=== PATIENT | male | born 1980 | race American Indian/Alaskan Native ===

== ENCOUNTER 2017-07-31 00:21 | Emergency (ER) | payer OTHER ==
[2017-07-31 00:33] VITALS: O2SAT 99; BMI 24.4
[2017-07-31] MEDS ORDERED: Morphine 4 mg/ml ISec IM STA (00:39)
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
[2017-07-31 03:15] VITALS: BP 130/78; PULSE 86; RESP 18; TEMP 98.4
--- NOTE | 2017-07-31 08:34 | RAD ---
PROCEDURE: Left Foot Radiographs. HISTORY: left foot injury COMPARISON: None. FINDINGS: BONES: No fracture, suspicious lytic or blastic change. JOINTS: Normal. SOFT TISSUES: Normal. OTHER FINDINGS: None. IMPRESSION: Normal left foot radiographs.
== END 2017-07-31 03:15 | disposition home or self-care (01) ==
LOC: ED 00:21 → MERGE 00:21 → ED 03:15
DX: S92.912A Unspecified fracture of left toe(s), initial encounter for closed fracture (principal); W31.89XA Contact with other specified machinery, initial encounter
CPT/HCPCS: 73630; 96372; 99285; J2270

== ENCOUNTER 2018-04-21 12:19 | Emergency (ER) | payer BC ==
[2018-04-21 12:37] VITALS: BMI 20.7
[2018-04-21] MEDS ORDERED: Sodium Chloride 0.9% 2,000 ML IV STA (12:40)
--- NOTE | 2018-04-21 12:43 | ED PDOC ---
Arrival/HPI - General Chief Complaint: Pain, Chronic Time Seen by Provider: 04/21/18 12:34 Historian: Patient - History of Present Illness Narrative History of Present Illness (Text): 04/21/18 12:39 37 year old male, with no significant past medical history, presents to the Emergency department complaining of right sided abdominal discomfort since past month. Patient informs worsening pain prompting him to the Emergency department today. Patient informs good bowel movement every other day and denies any changes in diet. Patient denies any fever, chills, nausea, vomiting, diarrhea, chest pain, shortness of breath, sick contact, recent travel or any other complaints. Patient admits smoking and drinking occasionally but denies substance use. 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 Patient presents to the Emergency department for medical evaluation. PMD: Bryon Time/Duration: 24 hours Symptom Onset: Gradual Symptom Course: Worsening Quality: Aching Activities at Onset: Light Context: Home Past Medical History - Provider Review Nursing Documentation Reviewed: Yes - Infectious Disease Hx of Infectious Diseases: None - Cardiac Hx Cardiac Disorders: No - Pulmonary Hx Respiratory Disorders: No - Neurological Hx Neurological Disorder: No - HEENT Hx HEENT Disorder: No - Renal Hx Renal Disorder: No - Endocrine/Metabolic Hx Endocrine Disorders: No - Hematological/Oncological Hx Blood Disorders: No - Integumentary Hx Dermatological Disorder: No - Musculoskeletal/Rheumatological Hx Back Pain: Yes - Gastrointestinal Hx Gastrointestinal Disorders: No - Genitourinary/Gynecological Hx Genitourinary Disorders: No - Psychiatric Hx Psychophysiologic Disorder: No Hx Substance Use: No - Anesthesia Hx Anesthesia: No Family/Social History - Physician Review Nursing Documentation Reviewed: Yes Family/Social History: No Known Family HX Smoking Status: Current Some Days Smoker Hx Alcohol Use: Yes Hx Substance Use: No Allergies/Home Meds Allergies/Adverse Reactions: Allergies shellfish derived Allergy (Verified 07/31/17 00:33) RASH Home Medications: Home Meds Medication Instructions Recorded Confirmed No Known Home Med 04/21/18 04/21/18 Review of Systems - Physician Review All systems were reviewed & negative as marked: Yes - Review of Systems Constitutional: Normal. absent: Fevers Eyes: Normal ENT: Normal Respiratory: Normal. absent: SOB Cardiovascular: Normal. absent: Chest Pain Gastrointestinal: Abdominal Pain (right sided). absent: Stool Changes, Diarrhea , Nausea, Vomiting Genitourinary Male: Normal Musculoskeletal: Normal Skin: Normal Neurological: Normal Endocrine: Normal Hemo/Lymphatic: Normal Psychiatric: Normal Physical Exam Vital Signs Reviewed: Yes Vital Signs Temp Pulse Resp BP Pulse Ox 04/21/18 12:52 98.2 F 79 18 136/88 97 Temperature: Afebrile Blood Pressure: Normal Pulse: Regular Respiratory Rate: Normal Appearance: Positive for: Well-Appearing, Non-Toxic, Comfortable Pain Distress: None Mental Status: Positive for: Alert and Oriented X 3 - Systems Exam Head: Present: Atraumatic, Normocephalic Pupils: Present: PERRL Extroacular Muscles: Present: EOMI Conjunctiva: Present: Normal Respiratory/Chest: Present: Clear to Auscultation, Good Air Exchange. No: Respiratory Distress, Accessory Muscle Use Cardiovascular: Present: Regular Rate and Rhythm, Normal S1, S2. No: Murmurs Abdomen: Present: Tenderness (right sided abdominal tenderness). No: Distention , Peritoneal Signs, McBurney's Point Tender Upper Extremity: Present: Normal Inspection. No: Cyanosis, Edema Lower Extremity: Present: Normal Inspection. No: Edema Neurological: Present: GCS=15, CN II-XII Intact, Speech Normal Skin: Present: Warm, Dry, Normal Color. No: Rashes Psychiatric: Present: Alert, Oriented x 3, Normal Insight, Normal Concentration Medical Decision Making ED Course and Treatment: 04/21/18 12:46 Impression: 37 year old male presents to the Emergency department for right side abdominal discomfort. Plan: -- CT of Head -- CT of Cervical Spine -- Labs -- EKG -- Chest X-ray -- IV Fluids -- Urinalysis -- US of Abdomen -- Reassess and disposition Progress Notes: 04/21/18 15:01 CT of head reviewed by radiologist, shows: FINDINGS: HEMORRHAGE: No intracranial hemorrhage. BRAIN: No mass effect or edema. No atrophy or chronic microvascular ischemic changes. VENTRICLES: Unremarkable. No hydrocephalus. CALVARIUM: Unremarkable. PARANASAL SINUSES: Unremarkable as visualized. No significant inflammatory changes. MASTOID AIR CELLS: Unremarkable as visualized. No inflammatory changes. OTHER FINDINGS: None. IMPRESSION: No acute findings Chest X-ray reviewed by radiologist, shows: FINDINGS: LUNGS: No active pulmonary disease. PLEURA: No significant pleural effusion identified, no pneumothorax apparent. CARDIOVASCULAR: Normal. OSSEOUS STRUCTURES: No significant abnormalities. VISUALIZED UPPER ABDOMEN: Normal. OTHER FINDINGS: None. IMPRESSION: No active disease. CT of Cervical Spine reviewed by radiologist, shows: FINDINGS: VERTEBRAE: No fracture. Normal alignment. No destructive bony lesion. DISCS/SPINAL CANAL/NEURAL FORAMINA: No significant central canal or neural foraminal stenosis. There is a moderate to large left paracentral disc herniation at C4-5. This is best seen on sagittal image 45 and axial image 49 series 2 PARASPINAL SOFT TISSUES: Unremarkable. OTHER FINDINGS: None. IMPRESSION: Moderate to large left paracentral disc herniation at C4-5 Ultrasound of Abdomen reviewed by radiologist, shows: FINDINGS: LIVER: Measures 10.4 cm. Patent portal vein. Portal venous flow: Hepatopetal. Unremarkable echogenicity of the liver parenchyma. No mass. No intrahepatic bile duct dilatation. GALLBLADDER: Unremarkable. No gallstones. COMMON BILE DUCT: Measures 3.9 mm. No stones. No dilatation. PANCREAS: Unremarkable as visualized. No mass. No ductal dilatation. RIGHT KIDNEY: Measures 4.4 x 12.4cm. Normal echogenicity. No calculus, mass, or hydronephrosis. LEFT KIDNEY: Measures 5.8 x 11.2cm. Normal echogenicity. No calculus, mass, or hydronephrosis. SPLEEN: Normal in size and contour. No mass. AORTA: No aneurysmal dilatation. IVC: Unremarkable. OTHER FINDINGS: None. IMPRESSION: Unremarkable abdominal sonogram. - Lab Interpretations Lab Results: 04/21/18 13:30 04/21/18 13:30 Lab Results 04/21/18 13:40: Urine Color Yellow, Urine Appearance Clear, Urine pH 7.5, Ur Specific [place] 1.015, Urine Protein 30 H, Urine Glucose (UA) Negative, Urine Ketones Negative, Urine Blood Negative, Urine Nitrate Negative, Urine Bilirubin Negative, Urine Urobilinogen 1.0 H, Ur Leukocyte Esterase Negative, Urine RBC Negative, Urine WBC 0 - 2, Ur Epithelial Cells 1 - 3, Urine Bacteria Few 04/21/18 13:30: Alcohol, Quantitative 147 H 04/21/18 13:30: Sodium 145, Potassium 3.8, Chloride 104, Carbon Dioxide 28, Anion Gap 17, BUN 9, Creatinine 0.8, Est GFR ( Amer) > 60, Est GFR (Non- Af Amer) > 60, Random Glucose 87, Calcium 9.2, Total Bilirubin 0.3, AST 31, ALT 25, Alkaline Phosphatase 64, Lactate Dehydrogenase 331 L, Total Creatine Kinase 141, Troponin I < 0.01, Total Protein 7.7, Albumin 4.4, Globulin 3.3, Albumin/ Globulin Ratio 1.3, Lipase 74 04/21/18 13:30: WBC 4.6, RBC 5.28, Hgb 12.6 L, Hct 38.1 L, MCV 72.2 L, MCH 23.9 L, MCHC 33.1, RDW 14.3, Plt Count 320, MPV 9.6, Gran % 60.1, Lymph % (Auto) 29.1 , [place] % (Auto) 8.0 H, Eos % (Auto) 1.9, Baso % (Auto) 0.9, Gran # 2.79, Lymph # (Auto) 1.4, [place] # (Auto) 0.4, Eos # (Auto) 0.1, Baso # (Auto) 0.04 - RAD Interpretation Radiology Orders: 04/21/18 12:40 CERVICAL SPINE W/O CONTRAST [CT] Stat HEAD W/O CONTRAST [CT] Stat CHEST PORTABLE [RAD] Stat ABDOMEN COMPLETE [US] Stat 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 - Medication Orders Current Medication Orders: Discontinued Medications Sodium Chloride (Sodium Chloride 0.9%) 2,000 mls @ 999 mls/hr IV .Q2H1M STA Stop: 04/21/18 14:40 Last Admin: 04/21/18 13:49 Dose: 999 mls/hr eMAR Start Stop Document 04/21/18 13:49 [email or web address] (Rec: 04/21/18 13:49 [email or web address] [id number]) Intravenous Solution Start Date 04/21/18 Start Time 13:49 End Date 04/21/18 Morphine Sulfate (Morphine) 4 mg IVP STAT STA Stop: 04/21/18 13:15 Last Admin: 04/21/18 13:49 Dose: 4 mg MAR Pain Assessment Document 04/21/18 13:49 [email or web address] (Rec: 04/21/18 13:50 [email or web address] [id number]) Pain Reassessment Is this a pain reassessment? No Sleep Is patient sleeping during reassessment? No Presence of Pain Presence of Pain Yes Pain Scale Used Pain Scale Used Numeric Location Pain Location Body Site Abdomen Description Description Constant Intensity of Pain at present 7 Pain Behavior Facial Grimacing Aggravating Factors Changing Position Alleviating Factors/Management Medication Techniques Alleviating Factors Medication IVP Administration Document 04/21/18 13:49 [email or web address] (Rec: 04/21/18 13:50 [email or web address] [id number]) Charges for Administration # of IVP Administrations 1 Ondansetron HCl (Zofran Inj) 4 mg IVP STAT STA Stop: 04/21/18 13:15 Last Admin: 04/21/18 13:49 Dose: 4 mg IVP Administration Document 04/21/18 13:49 [email or web address] (Rec: 04/21/18 13:49 [email or web address] [id number]) Charges for Administration # of IVP Administrations 1 - Scribe Statement The provider has reviewed the documentation as recorded by the Scribe Yuli Belle. All medical record entries made by the Scribe were at my direction and personally dictated by me. I have reviewed the chart and agree that the record accurately reflects my personal performance of the history, physical exam, medical decision making, and the department course for this patient. I have also personally directed, reviewed, and agree with the discharge instructions and disposition. Disposition/Present on Arrival - Present on Arrival Any Indicators Present on Arrival: No History of DVT/PE: No History of Uncontrolled Diabetes: No Urinary Catheter: No History of Decub. Ulcer: No History Surgical Site Infection Following: None - Disposition Have Diagnosis and Disposition been Completed?: Yes Diagnosis: Alcohol intoxication, Alcoholic gastritis, Cervical radiculopathy, Bulging of intervertebral disc Disposition: HOME/ ROUTINE Disposition Time: 15:58 Patient Plan: Discharge Condition: FAIR Discharge Instructions (ExitCare): Alcohol Abuse and Alcoholism (DC), Gastritis (DC), Radiculopathy (DC) Additional Instructions: Mr Deutsch - Your numbness on the right side is coming from a buldging disc in your neck, you need to follow up with a neurosurgeon. Dr Izaguirre is clinical operations specialist. Your abodominal pain is coming from the alcohol you are drinking. Your blood alcohol level here today was 174. You have to stop drinking. I am prescribing protonix for you to take at home for this pain. Follow up with your regular doctor. Return to us if problems. Best- Dr. Ab Hightower Forms: [employer] (Serbian)
[2018-04-21 12:53] VITALS: BP 136/88; TEMP 98.2
--- NOTE | 2018-04-21 13:12 | CT ---
PROCEDURE: CT HEAD WITHOUT CONTRAST. HISTORY: Right Sided Body Numbness COMPARISON: None available. TECHNIQUE: Axial computed tomography images were obtained through the head/brain without intravenous contrast. Radiation dose: Total exam DLP = 910 mGy-cm. This CT exam was performed using one or more of the following dose reduction techniques: Automated exposure control, adjustment of the mA and/or kV according to patient size, and/or use of iterative reconstruction technique. FINDINGS: HEMORRHAGE: No intracranial hemorrhage. BRAIN: No mass effect or edema. No atrophy or chronic microvascular ischemic changes. VENTRICLES: Unremarkable. No hydrocephalus. CALVARIUM: Unremarkable. PARANASAL SINUSES: Unremarkable as visualized. No significant inflammatory changes. MASTOID AIR CELLS: Unremarkable as visualized. No inflammatory changes. OTHER FINDINGS: None. IMPRESSION: No acute findings
[2018-04-21] MEDS ORDERED: Morphine 4 mg/ml ISec IVP STA (13:14)
--- NOTE | 2018-04-21 13:36 | CT ---
PROCEDURE: CT Cervical Spine without contrast HISTORY: right sided cervical radiculopathy COMPARISON: None available. TECHNIQUE: Axial computed tomography images were obtained of the cervical spine without the use of intravenous contrast. Coronal and sagittal reformatted images were created and reviewed. Radiation dose: Total exam DLP = 600 mGy-cm. This CT exam was performed using one or more of the following dose reduction techniques: Automated exposure control, adjustment of the mA and/or kV according to patient size, and/or use of iterative reconstruction technique. FINDINGS: VERTEBRAE: No fracture. Normal alignment. No destructive bony lesion. DISCS/SPINAL CANAL/NEURAL FORAMINA: No significant central canal or neural foraminal stenosis. There is a moderate to large left paracentral disc herniation at C4-5. This is best seen on sagittal image 45 and axial image 49 series 2 PARASPINAL SOFT TISSUES: Unremarkable. OTHER FINDINGS: None. IMPRESSION: Moderate to large left paracentral disc herniation at C4-5
--- NOTE | 2018-04-21 13:45 | RAD ---
HISTORY: Right-sided chest pain. COMPARISON: No prior. FINDINGS: LUNGS: No active pulmonary disease. PLEURA: No significant pleural effusion identified, no pneumothorax apparent. CARDIOVASCULAR: Normal. OSSEOUS STRUCTURES: No significant abnormalities. VISUALIZED UPPER ABDOMEN: Normal. OTHER FINDINGS: None. IMPRESSION: No active disease.
--- NOTE | 2018-04-21 13:46 | US ---
HISTORY: Biliary Colic ? Gallstone? COMPARISON: None. TECHNIQUE: Sonographic evaluation of the abdomen. FINDINGS: LIVER: Measures 10.4 cm. Patent portal vein. Portal venous flow: Hepatopetal. Unremarkable echogenicity of the liver parenchyma. No mass. No intrahepatic bile duct dilatation. GALLBLADDER: Unremarkable. No gallstones. COMMON BILE DUCT: Measures 3.9 mm. No stones. No dilatation. PANCREAS: Unremarkable as visualized. No mass. No ductal dilatation. RIGHT KIDNEY: Measures 4.4 x 12.4cm. Normal echogenicity. No calculus, mass, or hydronephrosis. LEFT KIDNEY: Measures 5.8 x 11.2cm. Normal echogenicity. No calculus, mass, or hydronephrosis. SPLEEN: Normal in size and contour. No mass. AORTA: No aneurysmal dilatation. IVC: Unremarkable. OTHER FINDINGS: None. IMPRESSION: Unremarkable abdominal sonogram.
[2018-04-21 14:04] LABS: BASO # 0.04 K/mm3 (0.0-2.0); BASO % 0.9 % (0.0-3.0); EOS # 0.1 (0.0-0.7); EOS % 1.9 % (1.5-5.0); GRAN # 2.79 (1.4-6.5); GRAN % 60.1 % (50.0-68.0); HEMOGLOBIN 12.6 g/dL (14.0-18.0); LYMPH # 1.4 (1.2-3.4); LYMPH % 29.1 % (22.0-35.0); MEAN CELL VOLUME 72.2 fl (80.0-105.0); MEAN CORPUSCULAR HEMOGLOBIN 23.9 pg (25.0-35.0); MEAN CORPUSCULAR HGB CONC 33.1 g/dl (31.0-37.0); MEAN PLATELET VOLUME 9.6 fl (7.0-11.0); MONO # 0.4 (0.1-0.6); RBC 5.28 10^6/uL (3.5-6.1); RED CELL DISTRIBUTION WIDTH 14.3 % (11.5-14.5); WHITE BLOOD COUNT 4.6 10^3/ul (4.5-11.0)
[2018-04-21 14:07] LABS: ALB/GLOB RATIO 1.3 (1.1-1.8); ALBUMIN 4.4 g/dL (3.0-4.8); ALT/SGPT 25 U/L (7-56); AST/SGOT 31 U/L (17-59); BLOOD UREA NITROGEN 9 mg/dL (7-21); CALCIUM 9.2 mg/dL (8.4-10.5); GFR AFRICAN-AMERICAN > 60; GFR NON-AFRICAN AMERICAN > 60; LIPASE 74 U/L (23-300)
[2018-04-21 14:08] LABS: PH,URINE 7.5 (4.7-8.0); URINE BILIRUBIN NEGATIVE (NEGATIVE); URINE BLOOD NEGATIVE (NEGATIVE); URINE GLUCOSE (UA) NEGATIVE (NEGATIVE); URINE LEUKOCYTE ESTERASE NEGATIVE Leu/uL (NEGATIVE); URINE PROTEIN 30 mg/dL (<30 mg/dL)
[2018-04-21 14:09] LABS: URINE APPEARANCE CLEAR (CLEAR); URINE COLOR YELLOW (YELLOW)
[2018-04-21 14:17] LABS: URINE RBC NEGATIVE /hpf (0-2); URINE WBC 0 - 2 /hpf (0-6)
[2018-04-21 14:18] LABS: URINE BACTERIA FEW (NEG)
[2018-04-21 14:18] LABS: TROPONIN I < 0.01 ng/mL
[2018-04-21 16:08] VITALS: PULSE 80; O2SAT 99
[2018-04-21 16:27] VITALS: RESP 18
== END 2018-04-21 16:26 | disposition home or self-care (01) ==
LOC: ED 12:19
DX: K29.20 Alcoholic gastritis without bleeding (principal); F10.129 Alcohol abuse with intoxication, unspecified; Y90.6 Blood alcohol level of 120-199 mg/100 ml; M50.221 Other cervical disc displacement at C4-C5 level; M54.12 Radiculopathy, cervical region
CPT/HCPCS: 70450; 71045; 72125; 76700; 80053; 81001; 82550; 83615; 83690; 84484; 85025; 96374; 96375; 99283; G0480; J2270; J2405; J7040